=== PATIENT | female | born 1990 | race Caucasian/White ===

== ENCOUNTER 2017-10-26 09:33 | Outpatient (CLI) | payer BC ==
--- NOTE | 2017-10-26 23:45 | EKG ---
Test Reason : Blood Pressure : / mmHG Vent. Rate : 087 BPM Atrial Rate : 087 BPM P-R Int : 142 ms QRS Dur : 076 ms QT Int : 354 ms P-R-T Axes : 057 051 042 degrees QTc Int : 425 ms Normal sinus rhythm Normal ECG No previous ECGs available Confirmed by Anahi ELAINE ([id number]) on 10/26/2017 11:44:39 PM Referred By: SABRA Confirmed By:Anahi ELAINE
== END 2017-10-26 09:34 | disposition home or self-care (01) ==
LOC: EKG 09:33
PROVIDERS: ATTEND Obstetrics & Gynecology
DX: O99.419 Diseases of the circulatory system complicating pregnancy, unspecified trimester (principal); R00.2 Palpitations
CPT/HCPCS: 93005; 93010

== ENCOUNTER 2018-02-14 11:07 | Day surgery (SDC) | payer BC ==
[2018-02-14 12:22] VITALS: BMI 35.9
[2018-02-14 12:25] VITALS: BP 110/70; TEMP 98.6
--- NOTE | 2018-02-14 12:29 | PDOC.LDPN ---
Labor & Delivery Progress Note - Subjective Subjective: comfortable - Objective Vital signs reviewed and normal: yes General: NAD Uterine fundus: non tender FHT: category 1 (150s, mod jana, +accels, no decels >> after ECV FHTs 130s, + accels, no decels ) [place] contractions every: none Procedures: ECV: Fetus gricelda breech, EVC performed with good pt tolerance into cephalic - Assessment (1) 36 weeks gestation of Code(s): Z3A.36 - 36 WEEKS GESTATION OF Current Visit: Yes Status : Acute (2) Breech presentation Code(s): O32.1XX0 - MATERNAL CARE FOR BREECH PRESENTATION, UNSP Current Visit : Yes Status: Acute -: All R/B/A/I for ECV vs PLTCS reviewed again with pt and she desires to proceed with ECV. EVC performed without complication. Monitor for 1 hr s/p ECV and plan for d/c home. F/U scheduled 02/16/18. Rh pos.
[2018-02-14] MEDS ORDERED: Mineral Oil PER 1 ML TOP SCH (12:30)
[2018-02-14] MEDS ORDERED: Terbutaline Sulfate 1 MG/ML VIAL SC SCH (12:30)
[2018-02-14 12:34] LABS: Mean Corpuscular HGB CONC 35.5 g/dL (32.0-36.0); Mean Corpuscular Hemoglobin 32.4 pg (27.0-31.0); Mean Corpuscular Volume 91.2 fl (81.0-99.0); Mean Platelet Volume 7.4 fL (7.4-10.4); Platelet Count 260 thou/uL (130-400); RBC Distribution Width 11.6 % (11.5-14.5); Red Blood Cell (RBC) Count 4.02 mill/uL (4.20-5.40)
== END 2018-02-14 15:12 | disposition home or self-care (01) ==
LOC: L&D/OP 11:07
PROVIDERS: ATTEND Obstetrics & Gynecology
DX: O32.1XX0 Maternal care for breech presentation, not applicable or unspecified (principal); Z3A.36 36 weeks gestation of pregnancy; Z88.2 Allergy status to sulfonamides
CPT/HCPCS: 59412; 76815; 85027; 86850; 86900; 86901; 96360; 96361; 96372; 99283; J3105

== ENCOUNTER 2018-02-24 18:20 | Day surgery (SDC) | payer BC ==
[2018-02-24 19:07] VITALS: BMI 35.9
--- NOTE | 2018-02-24 21:19 | PRG ---
DATE OF SERVICE: 02/24/2018 PRIMARY SENIOR BENEFITS SPECIALIST: Dr. Lana Butler. CHIEF COMPLAINT: Abdominal pains. HISTORY OF PRESENT ILLNESS: Patient is a 27-year-old G2, P1 female with an intrauterine at 38 weeks and 2 days who is presenting to Labor and Delivery today with increasing abdominal pains. She rates her pain a 2/10 with contractions every 3-6 minutes. She reports that she was 1 cm, 50% effaced last week when she was checked by Dr. Butler. She recently had a successful external cephalic version. Patient denies any vaginal bleeding or leakage of fluid. She denies any recent illness, fever, fall, headache, chest pain, shortness of breath, nausea, vomiting, diarrhea, constipation. She denies any new rashes. She reports that she has had some baseline hip problems with the . Denies any muscle weakness, any vaginal bleeding, leakage of fluid, any urinary symptoms. PAST MEDICAL HISTORY: Depression and anxiety. PAST SURGICAL HISTORY: [place] teeth were removed. ALLERGIES: SULFA DRUGS. SOCIAL HISTORY: Denies tobacco or drug use. Does report having some alcohol before . MEDICATIONS: vitamins. OB LABS: Blood type is B positive, antibody screen is negative, HIV is nonreactive in the first and third trimester, RPR is nonreactive in the first and third trimester. Hepatitis B surface antigen is negative. She is rubella immune. Her one-hour Glucola was 94. GBS status is positive. REVIEW OF SYSTEMS: Per HPI. PHYSICAL EXAMINATION: VITAL SIGNS: Blood pressure 130/76, heart rate 95, respiratory rate 18, temperature 98.2. GENERAL: She appears to be in no acute distress. She is alert and oriented, cooperative and pleasant to interact with. HEENT: Head is normocephalic, atraumatic. LUNGS: Clear to auscultation bilaterally. HEART: Regular rate and rhythm. ABDOMEN: Soft, nontender to palpation. She has no CVA tenderness. She does have some SI joint tenderness. EXTREMITIES: Nontender with symmetrical edema. PELVIC: Cervix per nursing staff is 1.5, 50 and -1 station. heart tracing performed for abdominal pain in , tracing was for about 45 minutes. Baseline is noted to be in the 140s with moderate long-term variability, positive accelerations, no decelerations. Tocometer showing irregular contractions anywhere from 2-4 minutes. ASSESSMENT AND PLAN: Patient is a 27-year-old G2, P1 female with an intrauterine at 38 weeks and 2 days, coming in with false labor. the patient has appointment tomorrow with Dr. Butler which she has been encouraged to keep. She has been given term labor precautions and is being discharged to home. She is GBS positive and will need antibiotics on admission when in labor. ROSANA
== END 2018-02-24 19:40 | disposition home or self-care (01) ==
LOC: L&D/OP 18:20
PROVIDERS: ATTEND Obstetrics & Gynecology
DX: O47.1 False labor at or after 37 completed weeks of gestation (principal); Z3A.38 38 weeks gestation of pregnancy; Z88.2 Allergy status to sulfonamides
CPT/HCPCS: 59025; 76815; 99282

== ENCOUNTER 2018-03-08 18:01 | Inpatient (IN) | payer BC ==
--- NOTE | 2018-03-08 23:05 | ULT ---
NONSTRESS BIOPHYSICAL PROFILE 03/08/18 HISTORY: Nondiagnostic nonstress test. COMPARISON: None. FINDINGS: Single intrauterine gestation. Vertex presentation. Fundal placenta. heart tones with a rate of 147 to 169 beats per minute. Amniotic fluid index is 11 cm. Nonstress biophysical profile: tone - 2 Breathing - 2 Movement - 2 Amniotic fluid - 2 Total score 8 out of 8. IMPRESSION: Nonstress biophysical profile score is 8 out of 8. POS: AGUSTÍN
--- NOTE | 2018-03-09 02:23 | PRG ---
OB ER ENCOUNTER DATE OF ENCOUNTER: 03/08/2018 PRIMARY OB: Dr. Lana Butler. CHIEF COMPLAINT: Lower extremity asymmetric swelling. HISTORY OF PRESENT ILLNESS: Patient is a 27-year-old G2, P1 female with an intrauterine of 40 weeks who is presenting today to Labor and Delivery with swelling in her lower extremities, left greater than right. Patient had been at shopping and had come home and noticed the swelling. Patient denies any headache, denies any pain in her legs or knees. She reports that her swelling got much better upon rest and elevation at home. Patient denies any vaginal bleeding or leakage of fluid. She reports that she was last seen by Dr. Butler last and was noted to have cervical exam of about 1.5 cm dilated, 50% effacement. Patient denies any recent illness, fever, fall , headache, chest pain, shortness of breath, nausea, vomiting, diarrhea, constipation. She denies any rashes, hip problems, or knee problems. She has been experiencing some low back pain attributed to the . She denies any vaginal bleeding, leakage of fluid, urinary urgency, or frequency. She does report good movement. PAST MEDICAL HISTORY: Depression, anxiety. PAST SURGICAL HISTORY: [place] teeth removed. ALLERGIES: SULFA DRUGS. SOCIAL HISTORY: Denies drug, alcohol, or tobacco use. CURRENT MEDICATIONS: vitamins. OB LABS: Blood type is B positive, antibody screen is negative, HIV is nonreactive in the first and third trimester, RPR is nonreactive in the first and third trimester. Hepatitis B surface antigen is negative. She is rubella immune. Her one-hour Glucola was 94. Her GBS status is positive. REVIEW OF SYSTEMS: Per HPI. PHYSICAL EXAMINATION: VITAL SIGNS: Blood pressure 127/78, heart rate is 88, respiratory rate of 18, temperature 98.1. GENERAL: She appears to be in no acute distress. She is alert and oriented, cooperative, and pleasant to interact with. HEENT: Normocephalic, atraumatic. LUNGS: Clear to auscultation bilaterally. HEART: Regular rate and rhythm. ABDOMEN: Gravid and soft and nontender. EXTREMITIES: Nontender. She does have some edema that slightly symmetrical with left greater than right. There is no erythema. There is no tenderness to her calves in the popliteal fossa. No cording. No unusual warmth to touch. Cervical exam per nursing staff is 1.5, 50, and -2 station. heart tracing which has been difficult to evaluate. The fetus is primarily remaining in the 160s to 180s with baseline that appeared to be in the 130s to 140s early on, but it has been very difficult to establish her baseline. It appears to be variables into the 120s and then again back up in the 160s to 180s. The heart tracing has been unchanged for the last 3 hours. There is moderate long-term variability and again appears to have prolonged accelerations with her baseline based on the early part of the strip likely in the 130s to 140s. Given the overall difficulty to interpret clearly a BPP was performed and was 8/8. Fetus is in vertex presentation and the placenta is fundal. ASSESSMENT AND PLAN: Patient is a 27-year-old G2, P1 female with an intrauterine at 40 weeks, who presented with some concerns about her lower extremity swelling. I have expressed reassurance to her. My primary concern has been the heart tracing, although we have overall appears that we were just having prolonged accelerations is difficult to clearly interpret. BPP is 8/8. I have attempted to contact Dr. Butler given the patient's gestational age of 40 weeks and a successful previous induction of labor. I am reluctant to send the patient home, though given the prolonged and continued tachycardia. With reassuring BPP of opted for prolonged monitoring at this time and hopefully, the fetus will settle down and gives a clear baseline. Once Dr. Butler has contacted, we will explain the situation to her and she can decide any additional management decisions. Patient's GBS positive. KESHAWND
[2018-03-09] MEDS ORDERED: Penicillin G Potassium 5 MILL.UNITS VIAL ONE (07:59)
--- NOTE | 2018-03-09 08:05 | PDOC.LDHP ---
Labor and Delivery H&P Chief complaint: contractions HPI: 27 yo @ 40w1d by LMP c/w 6 week CRl who was observed overnight by Dr. Oliveira due to concern for tachycardia on initial evaluation. FHTs have normalized, however, pt now in early labor. Pt s/p successful ECV @ 37 weeks. Pt did received cardiology evaluation due to sx of palpitations which have resolved. Due date: 03/08/18 Dating criteria: last menstrual period Grav: 2 Para: 1 Current complications: none Abnormal US findings: No Past Medical History: Depression Current medications: pre-cornel vitamins Previous surgical history: none Allergies/Adverse Reactions: Allergies Allergy/AdvReac Type Severity Reaction Status Date / Time sulfacetamide Allergy Intermediate Hives Verified 02/24/18 18:58 [From Sulfamide] Social history: none - Physical Exam Vital signs reviewed and normal: yes General: NAD Heart: RRR Lungs: nonlabored breathing Abdomen: NTTP Extremeties: trace edema FHT: category 1 (150s, mod jana, +accels, no decels) [place] contractions every: q2-4 min - Vaginal Exam cm dilated: 3 (cephalic) Effacement: 75% Station: -2 - OB Labs Blood type: B RH: positive Antibody Screen: negative HIV: negative RPR: negative HEPSAg: negative 1 hour GCT: negative GBS: positive Urine drug screen: not done Rubella: immune - Assessment 40w1d IUP Early labor GBS + - Plan Plan: admit to L&D, labor augmentation if indicated, GBS antibiotic prophylaxis , informed consent obtained, anesthesia consult for pain management (if desired) -: FHTs now cat 1, will monitor throughout labor. Pt denies any fever or abd tenderness between ctx.
[2018-03-09] MEDS ORDERED: Promethazine HCl 25 MG/ML VIAL IM PRN (08:11)
[2018-03-09] MEDS ORDERED: Acetaminophen 500 MG TAB PO PRN (08:11)
[2018-03-09] MEDS ORDERED: Ibuprofen 800 MG TAB PO PRN (08:11)
[2018-03-09] MEDS ORDERED: Ondansetron HCl/PF 4 MG/2 ML Vial IVP PRN (08:11)
[2018-03-09] MEDS ORDERED: Misoprostol 200 MCG TAB PR PRN (08:11)
[2018-03-09] MEDS ORDERED: HYDROcodone/Acetaminophen 5/325 mg Tablet PO PRN (08:11)
[2018-03-09] MEDS ORDERED: Methylergonovine 0.2 MG/ML VIAL IM PRN ×2 (08:11→17:51)
[2018-03-09] MEDS ORDERED: Lidocaine 1% (PF) 30 ML VIAL SC PRN (08:11)
[2018-03-09] MEDS ORDERED: Diphenoxylate HCl/Atropine Tablet PO PRN (08:11)
[2018-03-09] MEDS ORDERED: Butorphanol Tartrate 1 MG/ML VIAL SLOW IVP PRN (08:11)
[2018-03-09] MEDS ORDERED: Carboprost 250 MCG/ML AMP IM PRN (08:11)
[2018-03-09] MEDS ORDERED: Penicillin G Potassium 5 MILL.UNITS in Sodium Chloride 0.9% 100 ML IVPB SCH (08:15)
[2018-03-09 09:17] LABS: Hemoglobin 12.8 g/dL (12.0-16.0); Mean Corpuscular HGB CONC 32.9 g/dL (32.0-36.0); Mean Corpuscular Hemoglobin 30.6 pg (27.0-31.0); Mean Corpuscular Volume 92.9 fl (81.0-99.0); Mean Platelet Volume 7.7 fL (7.4-10.4); Platelet Count 271 thou/uL (130-400); RBC Distribution Width 11.9 % (11.5-14.5); Red Blood Cell (RBC) Count 4.18 mill/uL (4.20-5.40); White Blood Cell (WBC) Count 14.6 thou/uL (4.8-10.8)
[2018-03-09 09:27] LABS: Syphilis Antibody Nonreactive (Nonreactive); Syphilis Antibody Index 0.08 S/CO (<1.00 Non-Reactive)
[2018-03-09 09:39] LABS: HIV (1/2) Antibody/Antigen Non-Reactive (NonReactive); HIV 1/2 INDEX 0.17 S/CO (<1.00); Hep B Surf Ag Non-Reactive S/CO (NonReactive)
[2018-03-09] MEDS: Lactated Ringer's 1,000 ML IV SCH ×2 (12:00→18:13)
[2018-03-09] MEDS: Penicillin G 2.5 MILL.units 2.5 MILL.UNITS in Premix Bag 1 BAG IVPB SCH ×2 (12:00→18:13)
--- NOTE | 2018-03-09 12:37 | PDOC.LDPN ---
Labor & Delivery Progress Note - Subjective Subjective: painful contractions - Objective Vital signs reviewed and normal: yes General: NAD Uterine fundus: non tender SVE: cephalic Dilation: 6 Effacement: 90% Station: -1 FHT: category 1 (150s, mod jana, +accels, no decels) [place] contractions every: q2-5 min AROM: clear fluid - Assessment (1) 40 weeks gestation of Code(s): Z3A.40 - 40 WEEKS GESTATION OF Current Visit: Yes Status : Acute (2) Active labor Code(s): [id number] - Current Visit: Yes Status: Acute Plan: continue plan of care
[2018-03-09] MEDS: NS / Oxytocin 40 units/1000ml 1,000 ML IV PRN ×2 (14:45→15:53)
--- NOTE | 2018-03-09 15:14 | PDOC.OPDEL ---
OB Operative/Delivery Note Delivery Dr/Surgeon: Lana Butler DO Pre-Delivery Diagnosis: active labor Procedure/Post Delivery Dx: spontaneous vaginal delivery Weeks gestation: 40 Anesthesia: local - Findings A Sex: male - 1 min: 8 - 5 min: 9 - Additional Findings/Plan Placenta delivered: spontaneous Repaired Obstetrical Laceration: 2nd degree Estimated blood loss: 200 cc Compilations/Other Findings: in AYUSH position Normal appearing placenta Post delivery plan: routine recovery
[2018-03-09] MEDS ORDERED: Milk Of Magnesia 30 ML UDCUP PO PRN (17:51)
[2018-03-09] MEDS ORDERED: traMADol HCl 50 MG TAB PO PRN (17:51)
[2018-03-09] MEDS ORDERED: diphenhydrAMINE 25 MG CAP PO PRN (17:51)
[2018-03-09] MEDS ORDERED: Bisacodyl 10 MG SUPP PR PRN (17:51)
[2018-03-09] MEDS ORDERED: NS / Oxytocin 40 units/1000ml 1,000 ML IV SCH (17:51)
[2018-03-09] MEDS ORDERED: Preparation H Ointment 28 GM TUBE PR PRN (17:51)
[2018-03-09] MEDS: Ibuprofen 800 MG TAB PO SCH (21:01)
[2018-03-09] MEDS: Docusate Calcium (SURFAK) 240 MG CAP PO SCH (21:01)
[2018-03-10 05:00] LABS: Hemoglobin 11.1 g/dL (12.0-16.0); Mean Corpuscular HGB CONC 33.3 g/dL (32.0-36.0); Mean Corpuscular Hemoglobin 30.8 pg (27.0-31.0); Mean Corpuscular Volume 92.4 fl (81.0-99.0); Mean Platelet Volume 7.3 fL (7.4-10.4); Platelet Count 198 thou/uL (130-400); RBC Distribution Width 11.7 % (11.5-14.5); Red Blood Cell (RBC) Count 3.62 mill/uL (4.20-5.40); White Blood Cell (WBC) Count 12.9 thou/uL (4.8-10.8)
[2018-03-10] MEDS: Ibuprofen 800 MG TAB PO SCH ×2 (06:19→13:59)
--- NOTE | 2018-03-10 08:14 | PDOC.PP ---
Post Progress Note Post Day #: 1 Subjective: No concerns. Doing well. Minimal lochia. Breast feeding. Pain controlled. PO intake tolerated: yes Flatus: yes Ambulation: yes Vital Signs (12 hours) Temp Pulse Resp BP 03/10/18 04:00 98.0 F 77 16 99/51 L 03/09/18 23:41 98.0 F 76 16 108/55 L Weight Weight 225 lb - Physical Examination General: NAD Cardiovascular: RRR Respiratory: non-labored breathing Abdominal: no distention, appropriately TTP Fundus firm & at: below umbilicus Extremities: negative homans (B) Neurological: no gross focal deficits Psychiatric: A&Ox3 Result Diagrams: 03/10/18 04:14 Additional Labs: Post Labs Blood Type B POSITIVE 03/08/18 23:13 Hep Bs Antigen Non-Reactive S/CO (NonReactive) 03/08/18 23:13 (1) 40 weeks gestation of Code(s): Z3A.40 - 40 WEEKS GESTATION OF Status: Resolved (2) Active labor Code(s): ZBS5854 - Status: Resolved (3) (spontaneous vaginal delivery) Code(s): O80 - ENCOUNTER FOR FULL-TERM UNCOMPLICATED DELIVERY Status: Acute - Assessment/Plan PPD1 VSSAF Pt desires d/c home this afternoon with
[2018-03-10] MEDS ORDERED: Prenatal Vitamin 1 TAB PO SCH (09:00)
[2018-03-10] MEDS: Docusate Calcium (SURFAK) 240 MG CAP PO SCH (09:02)
[2018-03-10 11:33] VITALS: BP 121/55; TEMP 98.4
== END 2018-03-10 17:30 | disposition home or self-care (01) | DRG 775 ==
LOC: L&D/OP 18:01 → L&D 03-09 08:57 → 3SW 03-09 17:22
PROVIDERS: ADMIT Obstetrics & Gynecology; ATTEND Obstetrics & Gynecology
PROC: 10E0XZZ Delivery of Products of Conception, External Approach (ICD-10-PCS; principal; 2018-03-09)
PROC: 0KQM0ZZ Repair Perineum Muscle, Open Approach (ICD-10-PCS; 2018-03-09)
DX: O76 Abnormality in fetal heart rate and rhythm complicating labor and delivery (principal); O99.824 Streptococcus B carrier state complicating childbirth; R00.2 Palpitations; O70.1 Second degree perineal laceration during delivery; Z3A.40 40 weeks gestation of pregnancy; Z37.0 Single live birth
CPT/HCPCS: 36415; 76819; 85027; 86780; 86850; 86900; 86901; 87340; 87389; 99285; J2001; J2540

== ENCOUNTER 2019-08-07 15:34 | Outpatient (CLI) | payer BC ==
--- NOTE | 2019-08-07 16:13 | ULT ---
RIGHT BREAST ULTRASOUND: HISTORY: Palpable mass at the 3 o'clock position of the right breast. FINDINGS: Sonographic evaluation in the region of palpable concern at the 3 and 4 o'clock positions of the righ t breast demonstrate no abnormality. Further evaluation (including biopsy) should be based on clinical findings/suspicion. IMPRESSION: BI-RADS category 2 - benign findings. Return to age appropriate mammographic screening based on risk factors. POS: OFF
== END 2019-08-07 15:35 | disposition home or self-care (01) ==
LOC: BICULT 15:34
PROVIDERS: ATTEND Obstetrics & Gynecology
DX: N63.12 Unspecified lump in the right breast, upper inner quadrant (principal)

== ENCOUNTER 2019-08-08 10:02 | Outpatient (CLI) | payer BC ==
--- NOTE | 2019-08-08 12:49 | EKG ---
Test Reason : Blood Pressure : / mmHG Vent. Rate : 095 BPM Atrial Rate : 095 BPM P-R Int : 150 ms QRS Dur : 076 ms QT Int : 348 ms P-R-T Axes : 050 029 046 degrees QTc Int : 437 ms Normal sinus rhythm Low voltage QRS Nonspecific ST-T changes When compared with ECG of 26-OCT-2017 09:55, No significant change was found Confirmed by DR. Marivel HARDWICK ([id number]) on 08/08/2019 12:49:28 PM Referred By: SABRA Confirmed By:DR. Marivel HARDWICK
== END 2019-08-08 10:03 | disposition home or self-care (01) ==
LOC: EKG 10:02
PROVIDERS: ATTEND Obstetrics & Gynecology
DX: R00.2 Palpitations (principal)
CPT/HCPCS: 93005; 93010